=== PATIENT | male | born 1935 | race Caucasian/White ===

== ENCOUNTER 2017-12-20 12:28 | Emergency (ER) | payer BC, MEDICARE, OTHER ==
[2017-12-20] MEDS ORDERED: SODIUM CHLORIDE 0.9% FLUSH 10 ML SOL IV PRN (12:58)
[2017-12-20] MEDS ORDERED: ASPIRIN 81 MG CHEWABLE CTB PO STA (12:58)
[2017-12-20] MEDS ORDERED: MORPHINE SULFATE 10 MG/ML SOL IV PRN (12:58)
[2017-12-20] MEDS ORDERED: NITROGLYCERIN 0.4 MG TAB SL PRN (12:58)
[2017-12-20] MEDS ORDERED: SODIUM CHLORIDE 0.9% 1000ML 1,000 ML IV SCH ×2 (13:00→15:45)
[2017-12-20] MEDS ORDERED: ASPIRIN 81 MG CHEWABLE CTB ONE (13:02)
[2017-12-20 13:05] LABS: BASOPHILS % (AUTO) 1 % (0-3); EOSINOPHILS % (AUTO) 1 % (0-9); HEMATOCRIT 53 % (39-53); HEMOGLOBIN 17.6 gm/dl (13.5-17.7); LYMPHOCYTES % (AUTO) 22.4 % (10-50); MEAN CORPUSCULAR HGB CONC 32.9 gm/dl (32.0-36.0); MEAN CORPUSCULAR VOLUME 91 fL (80-100); NEUTROPHILS % (AUTO) 66.7 % (37-80)
[2017-12-20 13:18] LABS: INR 2.32 (0.86-1.12)
[2017-12-20 13:22] LABS: ALBUMIN 3.2 gm/dl (3.4-5.0); ALKALINE PHOSPHATASE 110 IU/L (46-116); ALT 23 IU/L (14-63); AST 20 IU/L (15-37); BLOOD UREA NITROGEN 21 mg/dl (7-18); CALCIUM 8.9 mg/dl (8.5-10.1); CARBON DIOXIDE 22.9 mEq/L (21-32); CHLORIDE 105 mMol/L (98-107); CREATINE KINASE 42 U/L (39-308); GLUCOSE 127 mg/dl (74-106); POTASSIUM 3.6 mMol/L (3.5-5.1); SODIUM 140 mMol/L (136-145); TOTAL PROTEIN 7.3 gm/dl (6.4-8.2); TROP I < 0.017 ng/ml (0.000-0.056)
[2017-12-20] MEDS ORDERED: DILTIAZEM 5 MG/ML SOL IV ONE ×3 (14:45→15:21)
[2017-12-20 15:05] LABS: APPEARANCE,URINE Clear; BILIRUBIN,URINE NEGATIVE (NEGATIVE); COLOR,URINE Yellow; GLUCOSE, URINE (UA) NEGATIVE (NEGATIVE); KETONES,URINE NEGATIVE (NEGATIVE); LEUKOCYTE ESTERASE ,URINE NEGATIVE (NEGATIVE); NITRATE,URINE NEGATIVE (NEGATIVE); OCCULT BLOOD,URINE TRACE INTACT (NEG-TRACE); UROBILINOGEN,URINE 0.2 (0.2-1.0 EU)
[2017-12-20 15:09] LABS: MAGNESIUM 1.9 mg/dl (1.8-2.4); THYROID STIMULATING HORMONE 4.36 uIU/ml (0.358-3.740)
[2017-12-20 15:20] LABS: BACTERIA TRACE (< 1+); CRYSTALS NEGATIVE (0-3 AVE/HPF); EPITHELIAL CELLS 0-1 (SQUAMOUS); RBC,URINE 0-2 (0-3AV/HPF); WBC,URINE NEG (0-5AV/HPF)
[2017-12-20] MEDS ORDERED: DILTIAZEM 5 MG/ML 125 MG in SODIUM CHLORIDE 0.9% 100 ML 100 ML IV SCH (15:30)
[2017-12-20 17:06] VITALS: BP 133/97; PULSE 141; RESP 24; TEMP 97.6; O2SAT 93
== END 2017-12-20 15:33 | disposition short-term general hospital (02) | DRG 310 ==
LOC: ED 12:28
DX: I48.91 Unspecified atrial fibrillation (principal); R00.0 Tachycardia, unspecified; I49.3 Ventricular premature depolarization; R55 Syncope and collapse; R06.02 Shortness of breath
CPT/HCPCS: 36415; 71045; 80053; 81001; 82550; 83735; 83880; 84443; 84484; 85025; 85610; 85730; 93005; 96365; 96366; 96374; 99285; 99291; 99292; J3490

== ENCOUNTER 2018-10-29 14:23 | Emergency (ER) | payer OTHER ==
[2018-10-29 14:39] VITALS: TEMP 98.6
[2018-10-29 14:51] VITALS: RESP 20
[2018-10-29 15:25] LABS: BASOPHILS % (AUTO) 0 % (0-3); EOSINOPHILS % (AUTO) 1 % (0-9); HEMATOCRIT 43 % (39-53); LYMPHOCYTES % (AUTO) 18.5 % (10-50); MEAN CORPUSCULAR HEMOGLOBIN 30.8 pg (27.0-32.0); MEAN CORPUSCULAR HGB CONC 32.9 gm/dl (32.0-36.0); MEAN CORPUSCULAR VOLUME 94 fL (80-100); MONOCYTES % (AUTO) 9.4 % (0-12); NEUTROPHILS % (AUTO) 71.2 % (37-80)
[2018-10-29 15:33] LABS: APPEARANCE,URINE Slightly Cloudy; BILIRUBIN,URINE NEGATIVE (NEGATIVE); COLOR,URINE Yellow; GLUCOSE, URINE (UA) NEGATIVE (NEGATIVE); KETONES,URINE 1+ (NEGATIVE); LEUKOCYTE ESTERASE ,URINE 3+ (NEGATIVE); NITRATE,URINE POSITIVE (NEGATIVE); OCCULT BLOOD,URINE 1+ (NEG-TRACE); PH,URINE 8.5; UROBILINOGEN,URINE >=8.0 (0.2-1.0 EU)
[2018-10-29 15:36] LABS: ALBUMIN 2.9 gm/dl (3.4-5.0); BILIRUBIN,TOTAL 1.5 mg/dl (0.2-1.0); CALCIUM 8.1 mg/dl (8.5-10.1); CREATININE 1.14 mg/dl (0.80-1.30); TOTAL PROTEIN 6.4 gm/dl (6.4-8.2)
[2018-10-29 15:42] LABS: CARBON DIOXIDE 26.4 mEq/L (21-32)
[2018-10-29 15:44] LABS: BACTERIA 4+ (< 1+); CRYSTALS NEGATIVE (0-3 AVE/HPF); EPITHELIAL CELLS NEGATIVE (SQUAMOUS); WBC,URINE 50-70 (0-5AV/HPF)
[2018-10-29 16:13] VITALS: BP 150/82; PULSE 90; O2SAT 98
[2018-10-29] MEDS ORDERED: CIPROFLOXACIN HCL 500 MG TAB PO SCH (16:15)
[2018-10-29] MEDS ORDERED: POTASSIUM CHLORIDE 10 MEQ TER PO ONE (16:15)
[2018-10-29] MEDS ORDERED: CEPHALEXIN 250 MG/5 ML BOTTLE PO ONE (16:19)
[2018-10-29] MEDS ORDERED: POTASSIUM CHLORIDE 10 MEQ TER ONE (16:21)
[2018-10-29] MEDS ORDERED: CEPHALEXIN 250 MG/5 ML BOTTLE ONE (16:22)
[2018-10-29] MEDS ORDERED: QUETIAPINE FUMARATE 25 MG TAB ONE (16:24)
[2018-10-29] MEDS ORDERED: QUETIAPINE FUMARATE 25 MG TAB PO SCH (16:30)
== END 2018-10-29 17:59 | DRG 884 ==
LOC: ED 14:23
DX: R45.1 Restlessness and agitation (principal); Z79.899 Other long term (current) drug therapy
CPT/HCPCS: 80053; 81001; 85025; 87077; 87088; 87186; 99282; 99283; A9270-GY